=== PATIENT | female | born 1940 | race Native Hawaiian/Other Pacific Islander ===

== ENCOUNTER 2016-11-30 09:25 | Outpatient (CLI) | payer MEDICARE ==
[2016-11-30 15:11] LABS: Basophils % (Auto) 0.9 % (0.0-1.8); Eosinophils % (Auto) 1.8 % (0.0-4.3); Hematocrit 40.6 % (30.3-42.9); Hemoglobin 13.2 gm/dl (10.1-14.3); Mean Corpuscular HGB Conc 33 % (30-34); Mean Corpuscular Hemoglobin 29 pg (28-32); Mean Corpuscular Volume 89 fl (79-97); Platelet Count 297 K/mm3 (140-440); Red Blood Count 4.56 M/mm3 (3.65-5.03); Red Cell Distribution Width 13.6 % (13.2-15.2); White Blood Count 4.6 K/mm3 (4.5-11.0)
[2016-11-30 15:24] LABS: Alanine Aminotransferase 7 units/L (7-56); Albumin/Globulin Ratio 1.3 %; Alkaline Phosphatase 76 units/L (35-129); Anion Gap 19 mmol/L; Blood Urea Nitrogen 14 mg/dL (7-17); Calcium 9.6 mg/dL (8.4-10.2); Carbon Dioxide 21 mmol/L (22-30); Chloride 95.1 mmol/L (98-107); Cholesterol 200 mg/dL (50-199); Glucose 100 mg/dL (65-100); HDL Cholesterol 78 mg/dL (40-59); LDL Cholesterol,Direct 110 mg/dL (50-130); Potassium 4.5 mmol/L (3.6-5.0); Sodium 131 mmol/L (137-145); Triglycerides 61 mg/dL (2-149); Uric Acid 4.1 mg/dL (3.5-7.6)
[2016-12-05 01:32] LABS: Vitamin D, 25-OH, Total 26 ng/mL (30-100)
== END 2016-11-30 09:26 | disposition home or self-care (01) ==
LOC: LAB 09:25
PROVIDERS: ATTEND Internal Medicine
DX: I10 Essential (primary) hypertension (principal); E78.2 Mixed hyperlipidemia; K21.9 Gastro-esophageal reflux disease without esophagitis; Z79.899 Other long term (current) drug therapy
CPT/HCPCS: 36415; 80053; 80061; 82306; 82607; 83036; 84443; 84550; 85025

== ENCOUNTER 2018-12-05 08:24 | Outpatient (CLI) | payer MEDICARE ==
[2018-12-05 11:04] LABS: Chol/HDL Ratio 3.08 %
[2018-12-07 11:20] LABS: Vitamin D, 25-OH, D2 <4 ng/mL
== END 2018-12-05 08:25 | disposition home or self-care (01) ==
LOC: LAB 08:24
PROVIDERS: ATTEND Internal Medicine
DX: E78.2 Mixed hyperlipidemia (principal); E11.9 Type 2 diabetes mellitus without complications; Z13.21 Encounter for screening for nutritional disorder
CPT/HCPCS: 36415; 80061; 82306; 83036

== ENCOUNTER 2019-03-20 09:15 | Outpatient (CLI) | payer MEDICARE ==
[2019-03-20 10:35] LABS: Chol/HDL Ratio 2.37 %
== END 2019-03-20 09:16 | disposition home or self-care (01) ==
LOC: LAB 09:15
PROVIDERS: ATTEND Internal Medicine
DX: E11.9 Type 2 diabetes mellitus without complications (principal); E78.2 Mixed hyperlipidemia
CPT/HCPCS: 36415; 80061; 83036